=== PATIENT | female | born 1985 | race Caucasian/White ===

== ENCOUNTER 2019-12-07 06:09 | Inpatient (IN) | payer OTHER ==
[2019-12-07] MEDS ORDERED: Ondansetron PF 4 MG/2 ML Vial IVP PRN (08:50)
[2019-12-07] MEDS ORDERED: Ibuprofen 800 MG TAB PO PRN (08:50)
[2019-12-07] MEDS ORDERED: NS / Oxytocin 40 units/1000ml 1,000 ML IV PRN (08:50)
[2019-12-07] MEDS ORDERED: hydrALAZINE 20 MG/ML VIAL SLOW IVP PRN ×2 (08:50→09:24)
[2019-12-07] MEDS ORDERED: Lidocaine 1% (PF) 30 ML VIAL SC PRN (08:50)
[2019-12-07] MEDS ORDERED: Promethazine HCl 25 MG/ML VIAL IM PRN (08:50)
[2019-12-07] MEDS ORDERED: HYDROcodone/Acetaminophen 5/325 mg Tablet PO PRN ×2 (08:50)
[2019-12-07] MEDS ORDERED: Butorphanol Tartrate 1 MG/ML VIAL SLOW IVP PRN (08:50)
[2019-12-07] MEDS ORDERED: Butorphanol Tartrate 1 MG/ML VIAL ONE (08:53)
--- NOTE | 2019-12-07 08:54 | PDOC.LDHP ---
Labor and Delivery H&P HPI: Patient of Dr Garcia here for spont labor with CTX every 3 minutes. She changes from 3cm to 5cm with SROM, bloody clear. EDC 12/13...39 weeks Review of Systems: negative for fever or cough, no sick contacts Current gestational age (weeks): 39 Due date: 12/14/19 Dating criteria: last menstrual period Grav: 1 Current complications: none Abnormal US findings: No Current medications: pre-dwayne vitamins Previous surgical history: none Allergies/Adverse Reactions: Allergies Allergy/AdvReac Type Severity Reaction Status Date / Time No Known Allergies Allergy Verified 12/07/19 06:33 - Physical Exam Vital signs reviewed and normal: yes General: breathing through contractions Heart: RRR Lungs: CTAB Abdomen: gravid Extremeties: no edema FHT: category 1 [place] contractions every: every 3 min - Vaginal Exam cm dilated: 5 (SROM in triage prior to admit) Effacement: 90% Station: 0 - Assessment L&D Assessment: term patient in labor - Plan Plan: admit to L&D, labor augmentation if indicated, informed consent obtained, anesthesia consult for pain management, other (Dr Garcia made aware while I was in another room (LDR7). I have now seen Yeni in LDR4 at bedside. Plan reviewed. GBS neg by her report)
[2019-12-07 09:24] LABS: Actual Bicarbonate (HCO3v) 21 mEq/L (22-28); Base Excess -4.6 mEq/L (-2.0 to +3.0); pH (Cord, venous) 7.32 (7.32-7.43)
[2019-12-07] MEDS ORDERED: Preparation H Ointment 28 GM TUBE PR PRN (09:24)
[2019-12-07] MEDS ORDERED: Benzocaine-Menthol 82.5 ML CAN TOP PRN (09:24)
[2019-12-07] MEDS ORDERED: Bisacodyl 10 MG SUPP PR PRN (09:24)
[2019-12-07] MEDS ORDERED: Lanolin Ointment 7 GM TUBE TOP PRN (09:24)
[2019-12-07] MEDS ORDERED: Misoprostol 200 MCG TAB VAG PRN (09:24)
[2019-12-07] MEDS ORDERED: Adacel (T-DAP) 0.5 ML SYRINGE IM ONE (09:24)
[2019-12-07 09:28] LABS: Actual Bicarbonate (HCO3a) 23.5 mEq/L (22-28); Base Excess (BEa) -6.6 mEq/L (-2.0 to +3.0)
[2019-12-07] MEDS ORDERED: Lidocaine 1% (PF) 30 ML VIAL ONE (09:28)
[2019-12-07] MEDS ORDERED: NS / Oxytocin 40 units/1000ml 1,000 ML IV SCH (09:30)
--- NOTE | 2019-12-07 09:33 | PDOC.OPDEL ---
OB Operative/Delivery Note Delivery Dr/Surgeon: Rony Pre-Delivery Diagnosis: active labor Procedure/Post Delivery Dx: spontaneous vaginal delivery Weeks gestation: 39 Anesthesia: local - Findings A - 1 min: 8 - 5 min: 9 - Additional Findings/Plan Placenta delivered: spontaneous Repaired Obstetrical Laceration: 3rd degree (3a-repaied by layer technique.) Estimated blood loss: 300 qbl Compilations/Other Findings: Cord ABG 7.17 Post delivery plan: routine recovery
--- NOTE | 2019-12-07 09:50 | PDOC.EVN ---
Event Note - Event Note Event Note: DELIVERY: Preop DX: term, precipitous labor Procedure: Third degree lac Delivery MD: MD Rony I was present in LDR4 when patient stated she had to have a BM. I checked her cervix and found her to be 9-10/100/0 to +1 Dr Garcia notified by [facility] text I gowned in and assisted with at 0914 (approx) Vigorous male Blanco called for precipitous delivery and they were in room prior to her delivery. 3a lac noted (no epis) Placenta delivered intact at approx 0925...Bernabe. I repaired the 3a lac with 2-0 chromic x 2 total. no complicatioins with repair. No TIAN as labor was too fast from arrival. EBL about 300ml complications none no packs in vagina by manual check counts correct by me Dr Garcia arrived just after child delivery NOTE: I believe she had a abruption which precipitated the rapid labor. She passed about 200ml PV just prior to delivery with some clots but thankful delivery was rapid and baby was very vigorous at . Clinically abruption but outcome well.
[2019-12-07 09:55] LABS: Hemoglobin 13.5 g/dL (12.0-16.0); Mean Corpuscular Volume 91.5 fL (78.0-98.0); Mean Platelet Volume 10.2 fL (7.4-10.4); Platelet Count 124 thou/uL (130-400); RBC Distribution Width 12.5 % (11.5-14.5); Red Blood Cell (RBC) Count 4.23 mill/uL (4.20-5.40); White Blood Cell (WBC) Count 17.5 thou/uL (4.8-10.8)
[2019-12-07 10:26] LABS: Syphilis Antibody Nonreactive (Nonreactive); Syphilis Antibody Index 0.07 S/CO (<1.00 Non-Reactive)
[2019-12-07 10:27] LABS: HBSAg Index 0.17 S/CO (0-0.99); HIV (1/2) Antibody/Antigen Non-Reactive (NonReactive); HIV 1/2 INDEX 0.06 S/CO (<1.00); Hep B Surf Ag Non-Reactive S/CO (NonReactive)
[2019-12-07] MEDS: traMADol HCl 50 MG TAB PO PRN (11:12)
[2019-12-07 11:22] VITALS: BMI 31.4
[2019-12-07] MEDS: Ibuprofen 800 MG TAB PO SCH ×2 (17:18→22:38)
[2019-12-07] MEDS: Ferrous Sulfate 325 MG TAB PO SCH (17:19)
[2019-12-07] MEDS: Milk Of Magnesia 30 ML UDCUP PO PRN (20:55)
[2019-12-07] MEDS: Docusate Calcium (SURFAK) 240 MG CAP PO SCH (20:55)
[2019-12-08] MEDS: Ibuprofen 800 MG TAB PO SCH ×3 (03:53→21:13)
[2019-12-08] MEDS: traMADol HCl 50 MG TAB PO PRN ×2 (03:53→19:31)
--- NOTE | 2019-12-08 06:01 | PDOC.HOSPP ---
- Subjective Encounter Date: 12/08/19 (PPD1) Encounter Time: 05:50 Subjective: fells well, no new concerns, not dizzy - Objective Vital Signs & Weight: Vital Signs (12 hours) Temp Pulse Resp BP Pulse Ox 12/08/19 03:50 98.0 F 78 16 124/71 12/07/19 23:05 98.2 F 69 16 121/71 12/07/19 20:35 98.6 F 75 16 124/67 98 Weight Weight 189 lb I&O: 12/06/19 12/07/19 12/08/19 06:59 06:59 06:59 Output Total 520 Balance -520 Result Diagrams: 12/07/19 09:10 Additional Labs: ordered this AM and pending Hospitalist ROS - Review of Systems All other systems reviewed; all pertinent +/- noted in HPI/Subj - Medication Medications: Active Medications Generic Name Dose Route Start Last Admin Trade Name Freq PRN Reason Stop Dose Admin Benzocaine/Menthol 0 ml 12/07/19 09:24 12/07/19 17:19 Dermoplast TOP 1 bot PRN PRN Administration Pain Docusate Calcium 240 mg 12/07/19 21:00 12/07/19 20:55 Surfak PO 240 mg BID ROSALINDA Administration Ferrous Sulfate 325 mg 12/07/19 17:00 12/07/19 17:19 Feosol PO Not Given BID-WM ROSALINDA Oxytocin/Sodium Chloride 1,000 mls @ 0 mls/hr 12/07/19 09:30 12/07/19 11:13 Ns / Pitocin 40 Units/1000 Ml IV 1,000 mls .Q0M ROSALINDA Administration As Directed Ibuprofen 800 mg 12/07/19 14:00 12/08/19 03:53 Motrin PO 800 mg Q8HR ROSALINDA Administration Magnesium Hydroxide 30 ml 12/07/19 09:24 12/07/19 20:55 Milk Of Magnesium PO 30 ml DAILY PRN Administration Constipation Tramadol HCl 50 mg 12/07/19 09:24 12/08/19 03:53 Ultram PO 50 mg Q6H PRN Administration Mild-Moderate Pain (1-5) - Exam Gastrointestinal: soft, non-tender, no palpable masses Extremities: no cyanosis, no clubbing, no edema Skin: normal turgor, no rashes Neurological: no new deficit Musculoskeletal: normal tone Psychiatric: normal affect Hosp A/P (1) Third degree laceration of perineum, type 3a Code(s): O70.21 - THIRD DEGREE PERINEAL LACERATION DURING DELIVERY, IIIA Status: Acute (2) Vaginal delivery Code(s): O80 - ENCOUNTER FOR FULL-TERM UNCOMPLICATED DELIVERY Status: Acute - Plan plan discussed w/ family HH this AM. Doing well. Precipitous labor again reviewed. proab DC home tomorrow PPD2
[2019-12-08] MEDS: Ferrous Sulfate 325 MG TAB PO SCH ×2 (09:38→18:10)
[2019-12-08] MEDS: Docusate Calcium (SURFAK) 240 MG CAP PO SCH ×2 (09:38→19:30)
[2019-12-08 09:57] LABS: Hemoglobin 9.3 g/dL (12.0-16.0)
[2019-12-08] MEDS ORDERED: Witch Hazel-Glycerin 1 EACH JAR TOP PRN (19:25)
[2019-12-08] MEDS: Milk Of Magnesia 30 ML UDCUP PO PRN (19:30)
[2019-12-09] MEDS: Ibuprofen 800 MG TAB PO SCH (06:01)
[2019-12-09 08:13] VITALS: BP 116/73; TEMP 97.6
[2019-12-09] MEDS: Docusate Calcium (SURFAK) 240 MG CAP PO SCH (08:16)
[2019-12-09] MEDS: Ferrous Sulfate 325 MG TAB PO SCH (08:16)
--- NOTE | 2019-12-09 09:25 | PDOC.PP ---
Post Progress Note Post Day #: 2 PO intake tolerated: yes Flatus: yes Ambulation: yes Vital Signs (12 hours) Temp Pulse Resp BP Pulse Ox 12/09/19 08:16 100 12/09/19 08:12 97.6 F 77 20 116/73 100 Weight Weight 189 lb Result Diagrams: 12/08/19 09:35 Additional Labs: Post Labs Blood Type O POSITIVE 12/07/19 10:51 Hep Bs Antigen Non-Reactive S/CO (NonReactive) 12/07/19 09:10 - Assessment/Plan Doing well. Normal BM. d/c home . F/u 6 weeks. OTC stool softeners bid and sitz baths bid...
== END 2019-12-09 13:15 | disposition home or self-care (01) | DRG 768 ==
LOC: L&D/OP 06:09 → L&D 08:43 → 3SW 12:36
PROVIDERS: ADMIT Obstetrics & Gynecology; ATTEND Obstetrics & Gynecology
PROC: 10E0XZZ Delivery of Products of Conception, External Approach (ICD-10-PCS; principal; 2019-12-07)
PROC: 0DQR0ZZ Repair Anal Sphincter, Open Approach (ICD-10-PCS; 2019-12-07)
DX: O70.21 Third degree perineal laceration during delivery, IIIa (principal); Z37.0 Single live birth; Z3A.39 39 weeks gestation of pregnancy
CPT/HCPCS: 36415; 82805; 85014; 85018; 85027; 86780; 86850; 86900; 86901; 87340; 87389; 99285; J0595; J2001